=== PATIENT | female | born 1990 | race Caucasian/White ===

== ENCOUNTER 2024-01-28 09:45 | Outpatient (OUT) | payer BC, SELFPAY ==
--- NOTE | 2024-01-28 | XR_ITS ---
The [address] [address] Patient Name: TYLOR BRAY MRN: [id number] date: 1990 Sex: F Assigned Patient Location: Current Patient Location: Accession/Order Number: [id number] Exam Date: 01/28/2024 09:50 Report Date: 02/01/2024 13:34 At the request of: FATOU MARTINEZ Procedure: XR foot RT min 3V PROCEDURE: XR foot RT min 3V COMPARISON: None. HISTORY: RIGHT FOOT PAIN FINDINGS: BONES:No fracture, acute abnormality, or significant arthropathy. SOFT TISSUES:Negative. No visible soft tissue swelling. EFFUSION:None visible. OTHER: Negative. XR/XR foot RT min 3V IMPRESSION: No acute radiographic abnormality Electronically authenticated by: KAE CHAVES Date: 02/01/2024 13:34
== END 2024-01-28 09:46 | disposition home or self-care (01) ==
PROVIDERS: Visit Provider Physician Assistant
DX: M25.571 Pain in right ankle and joints of right foot (principal)
CPT/HCPCS: 73630